=== PATIENT | male | born 1980 | race Hispanic/Latino ===

== ENCOUNTER 2017-07-15 08:00 | Outpatient (RCR) | payer OTHER | END 2017-07-24 | LOC: OT 08:00 | PROVIDERS: ATTEND Plastic Surgery | DX: S63.501D Unspecified sprain of right wrist, subsequent encounter (principal); M25.531 Pain in right wrist; M25.631 Stiffness of right wrist, not elsewhere classified; R53.1 Weakness ==

== ENCOUNTER 2017-08-18 10:00 | Outpatient (RCR) | payer OTHER | END 2017-08-23 | LOC: OT 10:00 | PROVIDERS: ATTEND Plastic Surgery | DX: S63.501A Unspecified sprain of right wrist, initial encounter (principal) | CPT/HCPCS: 97139 ==

== ENCOUNTER 2017-08-26 15:00 | Outpatient (RCR) | payer OTHER | END 2017-09-23 | LOC: OT 15:00 | PROVIDERS: ATTEND Plastic Surgery | DX: S63.501A Unspecified sprain of right wrist, initial encounter (principal) ==